=== PATIENT | female | born 1980 | race Caucasian/White ===

== ENCOUNTER → 2016-10-03 | Outpatient (CLI) | payer OTHER, MEDICAID ==
[~2016-10-03] MED LIST: ACHD5005 PO; CATHETER FLUSH 10 ML SYR IV PRN; CEPH500C PO; CLIN-62 PO; Concerta; DOXE10CA PO; HYDR-2890 PO; HYDR-3720 PO; IOHEXOL 350 MG/ML 100 ML (OMNIPAQUE 350) VIAL IV ONE; MELO-195 PO; METH36TA12 PO; NS 100 ML (IVPB) BAG IV ONE; OMEP20CA12 PO; OMEP40CA36 PO; SCR1T PO; TIZA4TAB55 PO; TRAZ150T42 PO; TRAZ50TA67 PO; VNL75T PO; ZONI100C3 PO; concerta PO
--- NOTE | 2016-10-03 14:03 | Diagnostic Imaging Report ---
PROCEDURE: CT abdomen with contrast only. TECHNIQUE: Multiple contiguous axial images were obtained through the abdomen after the administration of intravenous contrast. INDICATION: Painful urination. FINDINGS: The kidneys are symmetrical. No evidence of renal calculi. There is no evidence of hydronephrosis. There are no renal masses. There is symmetrical nephrogram effect following IV contrast injection. Delayed images show normal opacification of the collecting systems which appear normal bilaterally. Ureters are normal throughout the abdomen. Pelvis is not included in this exam. Lung bases are clear. There are two tiny cysts present in the liver in the anterior right lobe and posterior left lobe. Gallbladder is absent. Bile ducts are upper limits of normal. Common bile duct measures 8 mm. Pancreas is normal. The spleen is normal. Adrenal glands are not enlarged. Stomach and small bowel are not distended. There is considerable stool present within the colon. There is good opacification of the aorta and abdominal vessels following IV contrast which appear normal. IMPRESSION: 1. There is considerable stool in the colon consistent with constipation. 2. Tiny cysts in the liver appearing benign. 3. Kidneys and proximal ureters are normal. Dictated by: Dictated on workstation # [id number]
== END ==
LOC: RAD 12:25
PROVIDERS: ATTEND Internal Medicine
DX: R79.89 Other specified abnormal findings of blood chemistry (principal); K76.89 Other specified diseases of liver
CPT/HCPCS: 74160

== ENCOUNTER → 2016-12-19 | Outpatient (CLI) | payer MEDICAID, OTHER ==
[~2016-12-19] MED LIST changes: -CATHETER FLUSH 10 ML SYR IV PRN; -IOHEXOL 350 MG/ML 100 ML (OMNIPAQUE 350) VIAL IV ONE; -NS 100 ML (IVPB) BAG IV ONE
[2016-12-19 09:34] LABS: ALANINE AMINOTRANSFERASE 348 U/L (0-55); ALBUMIN 4.3 GM/DL (3.2-4.5); ANION GAP 11 MMOL/L (5-14); ASPARTATE AMINO TRANSFERASE 480 U/L (5-34); BILIRUBIN,TOTAL 1.8 MG/DL (0.1-1.0); BLOOD UREA NITROGEN 13 MG/DL (7-18); BUN/CREATININE RATIO 18 (0-20); CALCIUM 10.5 MG/DL (8.5-10.1); CARBON DIOXIDE 28 MMOL/L (21-32); CHLORIDE 104 MMOL/L (98-107); CREATININE SERUM 0.72 MG/DL (0.60-1.30); GFR ESTIMATED > 60; GLUCOSE 77 MG/DL (70-105); HEMOLYSIS 2 (0-29); ICTERUS 1.7 (0-1.9); LIPEMIA 3 (0-49); SODIUM 143 MMOL/L (135-145); TOTAL PROTEIN 8.4 GM/DL (6.4-8.2); hs C REACTIVE PROTEIN 0.33 MG/DL (0.00-0.50)
--- NOTE | 2016-12-19 10:21 | Diagnostic Imaging Report ---
INDICATION: Elevated liver enzymes EXAM: Hepatic ultrasound. FINDINGS: The previous hepatic ultrasound exam performed on 11/01/12 failed to show any abnormality of the liver. On this exam, the liver is homogeneous in appearance and not enlarged. As noted on the previous study, the gallbladder is surgically absent. The common bile duct now measures 7 mm as opposed to 3 mm on the previous exam. The proximal biliary tree may also be slightly more dilated than on the prior exam. There is no evidence for choledocholithiasis or for a mass to account for the dilatation of the common bile duct and proximal biliary tree. Even so, the pancreas was partially obscured by bowel gas. If further evaluation of the common duct and biliary tree is desired, then MRCP would be recommended. The right kidney is unremarkable. The proximal aorta is within normal limits. IMPRESSION: 1. The liver does not appear to be enlarged and there is no focal mass involving the liver. 2. The common bile duct and the proximal biliary tree do seems slightly more dilated than noted on the prior exam. The reason for this is not certain. Recommendations as above. Dictated by: Dictated on workstation # [id number]
[2016-12-22 07:36] LABS: ALPHA 1 ANTITRYPSIN 177.4 mg/dL (90.0-200.0)
[2016-12-22 16:30] LABS: SMOOTH MUSCLE ANTIBODY <1:20 (<1:20)
== END ==
LOC: RAD 08:07
PROVIDERS: ATTEND Internal Medicine Gastroenterology
DX: R79.9 Abnormal finding of blood chemistry, unspecified (principal); B27.00 Gammaherpesviral mononucleosis without complication; R03.0 Elevated blood-pressure reading, without diagnosis of hypertension; R53.1 Weakness
CPT/HCPCS: 36415; 76705; 80053; 82103; 85652; 86038; 86141; 86255

== ENCOUNTER → 2022-06-19 | Outpatient (CLI) | payer MEDICARE, MEDICAID ==
[~2022-06-19] MED LIST changes: -ZONI100C3 PO; +ZONI100C79 PO
--- NOTE | 2022-06-19 15:35 | Diagnostic Imaging Report ---
CLINICAL INDICATION: Patient has increasing cervical spine pain. Patient has previous cervical spine surgeries. EXAM: MRI of the cervical spine performed without IV contrast. Sequences include sagittal T2, sagittal T1, sagittal T2 fat-sat, and axial T2. COMPARISON: MRI of the cervical spine with and without contrast dated 12/15/2015. FINDINGS: There are interval postoperative changes to the cervical spine with C3-C6 anterior cervical discectomy fusion. Previously patient had C5-C6 ACDF. There is no significant paraspinal soft tissue abnormality. Limited visualization of posterior fossa is unremarkable. Again seen increased T2 signal involving the cervical spinal cord beginning at the lower C3 level to the lower C4 level. There is decreased cord caliber seen related to myelomalacia. Remainder of the cervical cord is unremarkable. C1-C2: There are degenerative spurs involving the atlantoodontoid interval anteriorly. There is no significant central canal stenosis. C2-C3: There is interval progression of small to moderate sized left subarticular disk spur. There is moderate left neural foramen narrowing which has progressed. There is no significant right neural foramen narrowing. There is mild central canal narrowing which has progressed. C3-C4: There is slight progression of posterior spurs. Bilateral uncinate spurs are again noted. There is moderate to severe right neural foramen narrowing which is slightly progressed. There is moderate left neural foramen narrowing again seen. There is moderate central canal stenosis which is slightly improved post discectomy. C4-C5: There is interval discectomy changes. There is small posterior spurs which has improved. There is severe right neural foramen narrowing again seen. There is mild left neural foramen narrowing which has slightly improved. C5-C6: Stable discectomy changes. There is no significant central canal or neural foramen narrowing. C6-C7: There is interval progression of a diffuse disk bulge with hypertrophic uncinate spurs with the left side more the right. There is severe left neural foramen narrowing which has progressed. There is mild to moderate right neural foramen narrowing which has progressed. There is progression of moderate loss of disk space height. C7-T1: There is interval progression of a diffuse disk bulge with mild to moderate loss of disk space height. There is moderate central canal stenosis which has progressed. There is severe left neural foramen narrowing and moderate to severe right neural foramen narrowing which has progressed. IMPRESSION: 1.: There is C3-C6 anterior cervical discectomy fusion which has been extended in the interim. There is interval improvement in central canal narrowing at the C3-C4 and C4-C5 levels. There is stable appearance of the C5-C6 level with no significant central canal narrowing. 2: There is interval progression of significant disk disease at the C2-C3, C6-C7, and C7-T1 levels which is described above. Dictated by: Dictated on workstation # [id number]
== END ==
LOC: RAD 14:04
PROVIDERS: ATTEND Neurological Surgery
DX: M50.03 Cervical disc disorder with myelopathy, cervicothoracic region (principal); M48.03 Spinal stenosis, cervicothoracic region; Z98.1 Arthrodesis status
CPT/HCPCS: 72141